=== PATIENT | female | born 1970 | race Caucasian/White ===

== ENCOUNTER → 2017-03-11 | Outpatient (CLI) | payer OTHER ==
[~2017-03-11] MED LIST: CLCX200C; PLAQUINIL
== END ==
LOC: RAD 11:59
PROVIDERS: ATTEND Nurse Practitioner Family
DX: Z12.31 Encounter for screening mammogram for malignant neoplasm of breast (principal)
CPT/HCPCS: 77067

== ENCOUNTER → 2017-04-01 | Outpatient (CLI) | payer OTHER ==
--- NOTE | 2017-04-01 12:18 | Diagnostic Imaging Report ---
PROCEDURE: CT urinary tract, rule out kidney stone. TECHNIQUE: Multiple contiguous axial images were obtained through the abdomen and pelvis without the use of intravenous contrast. INDICATION: Right flank pain. COMPARISON: There are no previous studies available for comparison. FINDINGS: Reportedly, there is clinical concern regarding obstruction of right collecting system. There is no evidence for nephrolithiasis or urolithiasis and the right kidney does not appear to be obstructed. The left kidney is generally unremarkable as is the urinary bladder. The appendix was visualized and is not abnormally thickened. There is a 2.0 x 2.3 cm rounded area of low density in the right adnexa. This may represent a cyst associated with the right ovary. If further study is desired, ultrasound would be recommended. The left ovary was not well visualized. The uterus is grossly unremarkable. There is no pelvic mass or free fluid collection noted. The liver, spleen, pancreas, adrenals, gallbladder, aorta and inferior vena cava show no sign of an acute abnormality. The stomach is not well-distended and consequently difficult to assess. The lung bases are clear. There is no obvious breast mass. The screening mammogram performed on 03/11/2017 failed to show any sign of malignancy. The bone windows are unremarkable for a fracture or for destructive lesion. IMPRESSION: 1. There is no evidence for nephrolithiasis or urolithiasis and the kidneys do not appear to be obstructed. There is no sign of appendicitis either. 2. The small roughly 2 cm rounded area of low density in the right adnexa may be related to a right ovarian cyst. If further study is desired, ultrasound would be recommended. 3. There is no acute abnormality of the abdomen or pelvis noted otherwise. Dictated by: Dictated on workstation # [id number]
== END ==
LOC: RAD 10:43
PROVIDERS: ATTEND Nurse Practitioner Family
DX: R19.09 Other intra-abdominal and pelvic swelling, mass and lump (principal); M54.5 Low back pain; R10.31 Right lower quadrant pain
CPT/HCPCS: 74176

== ENCOUNTER → 2017-04-08 | Outpatient (CLI) | payer OTHER ==
--- NOTE | 2017-04-08 15:36 | Diagnostic Imaging Report ---
EXAMINATION: Pelvic ultrasound. INDICATION: Right ovarian cyst. FINDINGS: The recent CT abdomen/pelvis exam of 04/01/2017 suggested that there may be a 2 cm cyst arising from the right ovary. On this exam, there is a 2.9 x 2.2 x 2.3 cm benign-appearing cyst arising from the right ovary. The left ovary is not well visualized due to overlying bowel gas. There is no solid pelvic mass or free fluid collection noted. The uterus is nongravid and not enlarged measuring 8.0 x 5.0 x 4.4 cm. The endometrial lining is not thickened measuring 4 mm. There is no focal mass involving the uterus to suggest a fibroid. IMPRESSION: 1. There is a 2.9 x 2.2 x 2.3 cm benign-appearing cyst arising from the right ovary. This would correspond to the finding of the CT exam. 2. There is no evidence for a solid pelvic mass or free fluid collection to suggest an acute abnormality. 3. The left ovary is not identified. Dictated by: Dictated on workstation # [id number]
== END ==
LOC: RAD 11:32
PROVIDERS: ATTEND Nurse Practitioner Family
DX: N83.291 Other ovarian cyst, right side (principal)
CPT/HCPCS: 76830; 76856

== ENCOUNTER → 2019-06-17 | Outpatient (CLI) | payer BC ==
[~2019-06-17] MED LIST changes: +ACET-93 PO; +CATHETER FLUSH 10 ML SYR IV PRN; +CIPR250S2 PO; +ELAG200T PO; +ESTR1PAT37 TD; +HOLD METFORMIN - RECEIVED CONTRAST 20 ML VIAL IV SCH; +IBUP-1780 PO; +IOHEXOL 350 MG/ML 100 ML (OMNIPAQUE 350) VIAL IV ONE; +MULT1CAP27 PO; +NS 100 ML (IVPB) BAG IV ONE; +OXC5T PO; +OXYB10TA6 PO; +SENN-20 PO
[2019-06-17 14:01] LABS: BASOPHILS % (AUTO) 1 % (0-10); EOSINOPHILS % (AUTO) 2 % (0-10); HEMATOCRIT 42 % (35-52); HEMOGLOBIN 14.8 G/DL (11.5-16.0); LYMPHOCYTES # (AUTO) 2.4 X 10^3 (1.0-4.0); LYMPHOCYTES % (AUTO) 32 % (12-44); MEAN CORPUSCULAR HEMOGLOBIN 32 PG (25-34); MEAN CORPUSCULAR HGB CONC 35 G/DL (32-36); MEAN CORPUSCULAR VOLUME 91 FL (80-99); MEAN PLATELET VOLUME 8.7 FL (7.4-10.4); MONOCYTES % (AUTO) 6 % (0-12); NEUTROPHILS # (AUTO) 4.4 X 10^3 (1.8-7.8); NEUTROPHILS % (AUTO) 59 % (42-75); PLATELET COUNT 342 10^3/uL (130-400); RED CELL DISTRIBUTION WIDTH 11.4 % (10.0-14.5); WHITE BLOOD COUNT 7.5 10^3/uL (4.3-11.0)
[2019-06-17 14:02] LABS: BASOPHILS # (AUTO) 0.1 10^3/uL (0.0-0.1); EOSINOPHILS # (AUTO) 0.1 10^3/uL (0.0-0.3); MONOCYTES # (AUTO) 0.4 X 10^3 (0.0-1.0)
[2019-06-17 14:11] LABS: BILIRUBIN,TOTAL 0.4 MG/DL (0.1-1.0); BUN/CREATININE RATIO 23; CALCIUM 9.5 MG/DL (8.5-10.1); CARBON DIOXIDE 26 MMOL/L (21-32); CHLORIDE 103 MMOL/L (98-107); CREATININE SERUM 0.66 MG/DL (0.60-1.30); GFR ESTIMATED > 60; GLUCOSE 113 MG/DL (70-105); POTASSIUM 4.1 MMOL/L (3.6-5.0); SODIUM 140 MMOL/L (135-145)
[2019-06-17 14:12] LABS: ALANINE AMINOTRANSFERASE 23 U/L (0-55); ALBUMIN 4.3 GM/DL (3.2-4.5); ALKALINE PHOSPHATASE 93 U/L (40-136); AMYLASE 48 U/L (25-125); TOTAL PROTEIN 7.2 GM/DL (6.4-8.2)
[2019-06-17 14:21] LABS: BAND NEUTROPHILS 0 %; BASOPHILS % (MANUAL) 1 %; EOSINOPHILS % (MANUAL) 0 %; LYMPHOCYTES % (MANUAL) 29 %; MONOCYTES % (MANUAL) 7 %; NEUTROPHILS % (MANUAL) 63 %; RBC MORPH NORMAL
[2019-06-17 14:40] LABS: LIPASE 39 U/L (8-78)
== END ==
LOC: LAB FS 13:27
PROVIDERS: ATTEND Family Medicine
DX: R19.00 Intra-abdominal and pelvic swelling, mass and lump, unspecified site (principal); R10.9 Unspecified abdominal pain
CPT/HCPCS: 36415; 74177; 80053; 82150; 83690; 85007; 85027

== ENCOUNTER → 2019-06-17 | Outpatient (CLI) | payer BC, OTHER ==
--- NOTE | 2019-06-17 15:07 | Diagnostic Imaging Report ---
PROCEDURE: CT abdomen and pelvis with contrast. TECHNIQUE: Multiple contiguous axial images were obtained through the abdomen and pelvis after administration of intravenous contrast. Auto Exposure Controls were utilized during the CT exam to meet ALARA standards for radiation dose reduction. DATE: June 17, 2019. COMPARISON: CT abdomen and pelvis April 01, 2017. INDICATION: 48-year-old female, left-sided abdominal pain for 2 weeks. FINDINGS: The visualized portions of the lung bases are clear. The heart is not enlarged. There is no pericardial effusion. The liver is unremarkable in size and contour. The liver appears diffusely low in attenuation suggesting diffuse fatty infiltration of the liver. The main, right, and left portal veins are patent. The gallbladder is unremarkable. There is no intrahepatic or extrahepatic bile duct dilation. The main pancreatic duct is not abnormally dilated. Unremarkable appearance of the pancreatic parenchyma. The spleen is normal in size. The adrenal glands are unremarkable. Unremarkable appearance of the renal parenchyma. The urinary collecting systems are not dilated. There is no identified renal or ureteral stone. The urinary bladder is unremarkable. The intestinal tract is not distended. The appendix is well seen on axial image 61 and adjacent sequential images. There is no evidence of acute appendicitis. There is a small fat-containing umbilical hernia. There is no free intraperitoneal air. There is no drainable fluid collection. There is no free pelvic fluid. There is no identified abnormally enlarged lymph node in the abdomen or pelvis which meets CT size criteria for adenopathy. There is no identified acute bony abnormality. IMPRESSION: CT ABDOMEN AND PELVIS. 1. No identified acute abnormality in the abdomen or pelvis. 2. Mild diffuse fatty infiltration of the liver. Dictated by: Dictated on workstation # [id number]
== END ==
LOC: RAD FS 13:16
PROVIDERS: ATTEND Family Medicine
DX: K76.0 Fatty (change of) liver, not elsewhere classified (principal); R19.00 Intra-abdominal and pelvic swelling, mass and lump, unspecified site
CPT/HCPCS: 74177

== ENCOUNTER 2019-07-15 09:49 | Outpatient (CLI) | payer BC ==
[~2019-07-15] VITALS: Ht 154 cm; Wt 90.4 kg
[~2019-07-15 09:49] MED LIST changes: -ACET-93 PO; -CATHETER FLUSH 10 ML SYR IV PRN; -CIPR250S2 PO; -ELAG200T PO; -ESTR1PAT37 TD; -HOLD METFORMIN - RECEIVED CONTRAST 20 ML VIAL IV SCH; -IBUP-1780 PO; -IOHEXOL 350 MG/ML 100 ML (OMNIPAQUE 350) VIAL IV ONE; -MULT1CAP27 PO; -NS 100 ML (IVPB) BAG IV ONE; -OXC5T PO; -OXYB10TA6 PO; -SENN-20 PO
[2019-07-15] MEDS ORDERED: MULT1CAP27 PO (10:06)
[2019-07-15] MEDS ORDERED: ELAG200T PO (10:06)
[2019-07-15 10:16] VITALS: BP 114/80
[2019-07-15 10:53] LABS: BASOPHILS % (AUTO) 1 % (0-10); EOSINOPHILS # (AUTO) 0.1 10^3/uL (0.0-0.3); EOSINOPHILS % (AUTO) 2 % (0-10); HEMATOCRIT 39 % (35-52); HEMOGLOBIN 13.5 G/DL (11.5-16.0); LYMPHOCYTES # (AUTO) 2.2 X 10^3 (1.0-4.0); LYMPHOCYTES % (AUTO) 30 % (12-44); MEAN CORPUSCULAR HEMOGLOBIN 32 PG (25-34); MEAN CORPUSCULAR HGB CONC 35 G/DL (32-36); MEAN CORPUSCULAR VOLUME 92 FL (80-99); MEAN PLATELET VOLUME 8.9 FL (7.4-10.4); MONOCYTES # (AUTO) 0.6 X 10^3 (0.0-1.0); MONOCYTES % (AUTO) 8 % (0-12); NEUTROPHILS # (AUTO) 4.3 X 10^3 (1.8-7.8); NEUTROPHILS % (AUTO) 59 % (42-75); PLATELET COUNT 299 10^3/uL (130-400); RED CELL DISTRIBUTION WIDTH 12.1 % (10.0-14.5); WHITE BLOOD COUNT 7.3 10^3/uL (4.3-11.0)
[2019-07-15 10:56] LABS: BILIRUBIN,URINE NEGATIVE (NEGATIVE); CLARITY,URINE CLEAR; COLOR,URINE YELLOW; GLUCOSE, URINE (UA) NEGATIVE (NEGATIVE); KETONES,URINE NEGATIVE (NEGATIVE); LEUKOCYTE ESTERASE ,URINE NEGATIVE (NEGATIVE); NITRITE,URINE NEGATIVE (NEGATIVE); PROTEIN,URINE NEGATIVE (NEGATIVE)
[2019-07-15 11:07] LABS: BACTERIA,URINE FEW /HPF; WBC,URINE RARE /HPF
== END 2019-07-15 11:30 | disposition home or self-care (01) ==
LOC: PREOP 09:49
PROVIDERS: ATTEND Obstetrics & Gynecology
DX: Z01.818 Encounter for other preprocedural examination (principal); N80.9 Endometriosis, unspecified
CPT/HCPCS: 36415; 81000; 85025; 86850; 86900; 86901; 87081

== ENCOUNTER → 2019-08-01 | Outpatient (CLI) | payer BC ==
[~2019-08-01] MED LIST changes: +ELAG200T PO; +MULT1CAP27 PO
--- NOTE | 2019-08-01 09:27 | Diagnostic Imaging Report ---
INDICATION: DYSPNEA COMPARISON: None. FINDINGS: Frontal and lateral views of the chest demonstrate normal heart size and pulmonary vascularity. The lungs are clear. There are no signs of infiltrate, pleural effusions or pneumothoraces. The visualized osseous structures show no acute abnormalities. IMPRESSION: 1. No acute process. No signs of infiltrates, effusions or pneumothoraces. Dictated by: Dictated on workstation # [id number]
== END ==
LOC: RAD 09:02
PROVIDERS: ATTEND Nurse Practitioner Family
DX: R06.00 Dyspnea, unspecified (principal)
CPT/HCPCS: 71046

== ENCOUNTER → 2019-08-15 | Outpatient (CLI) | payer BC ==
[~2019-08-15] MED LIST changes: +ACET-93 PO; +CIPR250S2 PO; +ESTR1PAT37 TD; +IBUP-1780 PO; +OXC5T PO; +OXYB10TA6 PO; +RT-ALBUTEROL SULF 2.5 MG/3 ML PRE-MIX VIAL INH ONE; +SENN-20 PO
== END ==
LOC: RT 14:42
PROVIDERS: ATTEND Nurse Practitioner Family
DX: G47.10 Hypersomnia, unspecified (principal); R06.00 Dyspnea, unspecified
CPT/HCPCS: 94060; 94726; 94729

== ENCOUNTER → 2019-08-16 | Outpatient (CLI) | payer BC ==
[~2019-08-16] MED LIST changes: +DIATRIZOATE 30% 300 ML (CYSTOGRAFIN) VIAL UR ONE; -RT-ALBUTEROL SULF 2.5 MG/3 ML PRE-MIX VIAL INH ONE
--- NOTE | 2019-08-16 12:25 | Diagnostic Imaging Report ---
INDICATION: Bladder injury, post hysterectomy one week ago. TECHNIQUE: Cystografin contrast was infused into the bladder through a Atwood catheter in a retrograde fashion. 300 mL of contrast was infused. Spot films of the bladder were obtained in multiple obliquities. A total of 55 seconds of fluoroscopic time was utilized. FINDINGS: The preliminary radiograph over the pelvis is unremarkable. Multiple views of the urinary bladder demonstrate a fairly smooth contour. No filling defects are seen. No extravasation of contrast is identified. The post drain films are unremarkable. IMPRESSION: Unremarkable cystogram. No definite extravasation is detected. Dictated by: Dictated on workstation # [id number]
== END ==
LOC: RAD 11:26
PROVIDERS: ATTEND Obstetrics & Gynecology
DX: S37.20XA Unspecified injury of bladder, initial encounter (principal); Z90.710 Acquired absence of both cervix and uterus
CPT/HCPCS: 51600; 74430

== ENCOUNTER 2019-09-14 21:09 | Outpatient (CLI) | payer BC ==
[~2019-09-14 21:09] MED LIST changes: -DIATRIZOATE 30% 300 ML (CYSTOGRAFIN) VIAL UR ONE
== END 2019-09-15 06:08 | disposition home or self-care (01) ==
LOC: SLEEP 21:09
PROVIDERS: ATTEND Nurse Practitioner Family
DX: G47.33 Obstructive sleep apnea (adult) (pediatric) (principal); J30.2 Other seasonal allergic rhinitis; G47.10 Hypersomnia, unspecified; R06.83 Snoring
CPT/HCPCS: 95811

== ENCOUNTER → 2019-10-25 | Outpatient (CLI) | payer BC ==
--- NOTE | 2019-10-26 12:25 | Diagnostic Imaging Report ---
INDICATION: Routine screening. COMPARISON: 03/11/2017 and 12/27/2015. TECHNIQUE: 2D and 3D bilateral screening mammography was performed with CAD. FINDINGS: Scattered fibroglandular densities are identified bilaterally. The parenchymal pattern is stable. No mass or malignant appearing microcalcifications are seen. The axillae are unremarkable. IMPRESSION: No mammographic features suspicious for malignancy are identified. ACR BI-RADS Category 1: Negative. Result letter will be mailed to the patient. Note: At least 10% of breast cancer is not imaged by mammography. Dictated by: Dictated on workstation # [id number]
== END ==
LOC: RAD 14:36
PROVIDERS: ATTEND Obstetrics & Gynecology
DX: Z12.31 Encounter for screening mammogram for malignant neoplasm of breast (principal)
CPT/HCPCS: 77067